=== PATIENT | male | born 1945 | race Caucasian/White ===

== ENCOUNTER 2023-08-17 06:45 | Day surgery (SDC) | payer MEDICARE, SELFPAY ==
[2023-08-04 12:12] VITALS: BMI 23.3
[2023-08-17] VITALS (8 sets, daily range): BP systolic 115–147; BP diastolic 66–88; BMI 23.3
--- NOTE | 2023-08-17 07:20 | HP.FOC2 ---
Focused History & Physical
Chief Complaint
HPI:
Chief Complaint: Recurrent right inguinal hernia
HPI / Indication for Planned Procedure: Patient is a 78-year-old male with a few year history of discomfort and swelling in the right inguinal region. Previously underwent open right inguinal herniorrhaphy in 1989 which he recovered well from.
Swelling is present upon standing or with exertional activities. Outpatient surgical evaluation confirmed the presence of his recurrent right inguinal hernia. Presents today for scheduled operative correction.
Relevant Past Medical History: Other (Essential tremor, glaucoma, GERD, history lymphoma)
Relevant Social History: Negative (Active duty [employer])
Relevant Family History: Negative
Relevant Past Surgical History: Positive for (Open right inguinal hernia repair 1997, tonsillectomy, left shoulder rotator cuff repair, metal plate left side of face, left tibia repair)
Review of Systems
Review of Pertinent Systems: All Systems Negative
Medication
See Medication form for detailed medications: Yes
Medication List (including Herbals & OTC):
aspirin 81 mg tablet,delayed release 81 mg PO DAILY 11/23/13
multivitamin 1 tab PO DAILY 11/23/13
primidone 250 mg tablet 250 mg PO HS 11/23/13
brimonidine 0.2 % eye drops 1 drp BOTH EYES BID 08/13/23
dorzolamide (PF) 2 % (PF) eye drops 1 drp BOTH EYES BID 08/13/23
pantoprazole 40 mg tablet,delayed release (Protonix) 40 mg PO PRN PRN GERD 08/13/23
primidone 50 mg tablet 50 mg PO HS 08/13/23
tafluprost (PF) 0.0015 % eye drops in a dropperette 1 drp BOTH EYES HS 08/13/23
Medications Reviewed: Yes
Allergies and Reactions
Patient has Allergies: Yes
Noted Allergies and Reactions:
Allergy/AdvReac Type Severity Reaction Status Date / Time
gabapentin [From Neurontin] Allergy Confusion Verified 08/13/23 11:26
timolol [From Timoptic] Allergy AV Block Verified 08/13/23 11:26
Pertinent Physical Exam
All Other Systems: Negative
Head/Neck: Normal
Lungs: Normal
Heart: Normal
Abdomen: Other (Recurrent right inguinal hernia, reducible, right inguinal surgical scar noted)
Extremities: Normal
Neurological: Normal
Diagnosis / Assessment
78-year-old male presenting for scheduled operative correction recurrent right inguinal hernia
Plan / Procedure
Robotic assisted laparoscopic repair recurrent right inguinal hernia with mesh
Anesthesia/Sedation to be done by Anesthesia Provider: Yes
[2023-08-17] MEDS: TYLENOL 1000 MG PO (10:07)
[2023-08-17] MEDS: NORMOSOL-R 1000 IV (10:07)
--- NOTE | 2023-08-17 11:43 | W.SUR.PREOP ---
Pre-Operative Surgical Note
-
I have examined this patient prior to the performance of the scheduled procedure.
The patient's condition is unchanged from the time of the current History and
Physical and the patient is able to undergo the scheduled procedure.
--- NOTE | 2023-08-17 14:31 | W.IMMPOSTOP ---
Addendum entered and electronically signed by Erasmo Arceo MD 08/17/23 14:55:
#[id number]
Original Note:
Surgical Immed Post Op Note
-
Primary Surgeon: Adis
Assisting Surgeon: Margie MILLER
Pre-op Diagnosis: Recurrent right inguinal hernia
Post-op Diagnosis: Recurrent right inguinal hernia, direct
Left inguinal hernia, indirect
Left femoral hernia
Left spigelian hernia
Procedure Performed: Robotic assisted laparoscopic repair bilateral inguinal hernias; left spigelian hernia with mesh. 3D max large mid weight mesh x 2
Anesthesia Type: GETA +0.25% Marcaine
Specimen / Cultures: None
Estimated Blood Loss: 8 mL
Complications: None immediate
Operative Findings: Recurrent right direct inguinal hernia with multiple defects visible between previous permanent suture closure. Right indirect space normal. Right femoral space normal. 3D max large mid weight mesh repair
Incidental left indirect inguinal hernia, left femoral hernia and small left spigelian hernia. 3D max large mid weight mesh repair which covered all these hernia defects with single sheet of left-sided mesh.
Bladder distended by end of operative procedure, straight catheterization to empty.
--- NOTE | 2023-08-17 15:20 | SUR.PHASEI ---
comfortable and talkative throughout pacu stay. vss, no pain. no nausea, taking ice chips po. no vertigo.
--- NOTE | 2023-08-17 16:23 | W.IMMPOSTOP ---
Addendum entered and electronically signed by Erasmo Arceo MD 08/17/23 16:37:
THIS IS AN INCORRECT BRIEF OP NOTE - PLEASE DISCARD - WRONG PATIENT
Original Note:
Surgical Immed Post Op Note
-
Primary Surgeon: Adis
Assisting Surgeon: Fili MILLER
Pre-op Diagnosis: Symptomatic cholelithiasis, chronic calculus cholecystitis
Post-op Diagnosis: Symptomatic cholelithiasis, chronic calculus cholecystitis
Procedure Performed: Laparoscopic cholecystectomy with intraoperative cholangiogram
Anesthesia Type: GETA +0.25% Marcaine
Specimen / Cultures: Gallbladder
Estimated Blood Loss: 8 mL
Complications: None immediate
Operative Findings: Gallbladder with few filmy adhesions. Numerous gallstones. Intraoperative cholangiogram normal. Cholecystectomy completed intact and extracted at epigastric 12 mm trocar site.
== END 2023-08-17 16:05 | disposition home or self-care (01) ==
LOC: SDS 06:45
PROVIDERS: ATTENDING PHYSICIAN Surgery; FAMILY PHYSICIAN Family Medicine
DX: K40.91 Unilateral inguinal hernia, without obstruction or gangrene, recurrent (principal); K41.90 Unilateral femoral hernia, without obstruction or gangrene, not specified as recurrent; K43.9 Ventral hernia without obstruction or gangrene; K40.90 Unilateral inguinal hernia, without obstruction or gangrene, not specified as recurrent; K40.21 Bilateral inguinal hernia, without obstruction or gangrene, recurrent
CPT/HCPCS: 49651; 49650; 49550; 49591; C1781

== ENCOUNTER → 2023-09-07 19:15 | Outpatient (REF) | payer MEDICARE, SELFPAY | LOC: MRI 19:15 | PROVIDERS: ATTENDING PHYSICIAN Specialist; FAMILY PHYSICIAN Family Medicine | DX: H53.2 Diplopia (principal) | CPT/HCPCS: 70553; A9575 ==

== ENCOUNTER → 2024-02-12 08:40 | Outpatient (REF) | payer MEDICARE, SELFPAY | LOC: RAD 08:40 | PROVIDERS: ATTENDING PHYSICIAN Physician Assistant; FAMILY PHYSICIAN Family Medicine | DX: E83.52 Hypercalcemia (principal); R79.89 Other specified abnormal findings of blood chemistry | CPT/HCPCS: 78071; A9500 ==

== ENCOUNTER → 2024-02-29 07:50 | Outpatient (REF) | payer MEDICARE, SELFPAY | LOC: HWRAD 07:50 | PROVIDERS: ATTENDING PHYSICIAN Physician Assistant; FAMILY PHYSICIAN Family Medicine | DX: E83.52 Hypercalcemia (principal); R79.89 Other specified abnormal findings of blood chemistry | CPT/HCPCS: 76536 ==

== ENCOUNTER 2024-04-05 06:07 | Day surgery (SDC) | payer MEDICARE, SELFPAY ==
[2024-03-18 07:29] VITALS: BMI 22.2
[2024-04-05] VITALS (9 sets, daily range): BP systolic 116–135; BP diastolic 67–81; BMI 22.2
[2024-04-05] MEDS: HEPARIN 5000 UNITS SC (06:42)
[2024-04-05] MEDS: TYLENOL 1000 MG PO (06:43)
[2024-04-05] MEDS: NORMOSOL-R/PLASMALYTE-A 1000 IV (06:45)
[2024-04-05 08:23] LABS: Turbo PTH 90.1 pg/ml (13.6-85.8)
[2024-04-05 09:03] LABS: Turbo PTH 21.1 pg/ml (13.6-85.8)
--- NOTE | 2024-04-05 09:41 | OR.RPT ---
Operative Report
Operative Report
Date of Operation: April 05, 2024
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
Postoperative Diagnosis: Same
Surgeon: Mark Bernal M.D.
Operation: Minimally Invasive Left Superior Parathyroidectomy - 28699
Anesthesia: GET
Estimated Blood Loss: 2 cc
Drains: None
Specimen: Left superior neck nodule, rule out parathyroid adenoma
Complications: �None
Procedure:
The patient was taken to the operating room and placed in the usual supine position. After adequate general endotracheal anesthesia was established, the patient's neck was extended, prepped, and draped in the typical sterile fashion. A 4 cm
transcervical incision was made two fingerbreadths above the sternal notch. The skin incision was made with the #15 blade, and this was taken through the skin into the subcutaneous tissue. The underlying platysma muscle was divided, and subplatysmal
flaps were created superiorly to the thyroid cartilage and inferiorly to the sternal notch. Strap muscles were identified and at the midline.
The attention was turned to the left side of the neck. The left thyroid lobe was mobilized medially. During this process, the left recurrent laryngeal nerve was identified and preserved throughout the surgery. The left upper neck nodule was
identified and noted to be enlarged, excised, and sent to the pathology department, which showed a hypercellular parathyroid gland. The intraoperative PTH levels normalized.
After obtaining adequate hemostasis, the strap muscles were reapproximated with #3-0 Vicryl in a running fashion. The platysma muscle was reapproximated with #3-0 Vicryl in an interrupted fashion, and the skin was approximated with #4-0 Monocryl in
a running subcuticular fashion. The Steri-Strips and sterile dressings were placed. The patient tolerated the procedure well. The final instrument, needle, and sponge counts were correct. The patient was extubated and transferred to the PACU.
== END 2024-04-05 10:52 | disposition home or self-care (01) ==
LOC: SDS 06:07
PROVIDERS: ATTENDING PHYSICIAN Surgery; FAMILY PHYSICIAN Family Medicine
PROC: 0GBR0ZZ Excision of Parathyroid Gland, Open Approach (ICD-10-PCS; 2024-04-05)
DX: D35.1 Benign neoplasm of parathyroid gland (principal); E21.0 Primary hyperparathyroidism
CPT/HCPCS: 60500; 88305; 88332; 83970; 88331; C1776

== ENCOUNTER → 2025-04-25 13:45 | Outpatient (REF) | payer MEDICARE, SELFPAY | LOC: HWRCS 13:45 | PROVIDERS: ATTENDING PHYSICIAN Internal Medicine Cardiovascular Disease; FAMILY PHYSICIAN Family Medicine | DX: I47.19 Other supraventricular tachycardia (principal) | CPT/HCPCS: 93306 ==